=== PATIENT | male | born 1970 | race Caucasian/White ===

== ENCOUNTER 2017-09-23 09:57 | Day surgery (SDC) | payer MEDICARE, OTHER ==
[~2017-09-23] VITALS: Ht 177.8 cm; Wt 88.5 kg
[2017-09-23 09:56] VITALS: BP 134/96
[~2017-09-23 09:57] MED LIST: BUSP15TA60 PO; CARB200T6 PO; CLON1TAB4 PO; CYCL10TA9 PO; GABA600T2 PO; LEVO75TA6 PO; MORP15TA PO; QUET400T PO
[2017-09-23] MEDS ORDERED: BUP/EPI 0.5% 1:200,000 (SENSORCAINE) 30 ML VIAL ONE (10:00)
[2017-09-23] MEDS ORDERED: ceFAZolin 2 GM IV Premixed 50 ML IV ONE (10:00)
[2017-09-23] MEDS ORDERED: GENTAMICIN 40 MG/ML 2 ML INJ SDV ONE (10:00)
[2017-09-23] MEDS ORDERED: ceFAZolin 2 GM IV Premixed 50 ML ONE (10:06)
[2017-09-23] MEDS ORDERED: fentaNYL INJECTION 250 MCG/5 ML AMP ONE (10:08)
[2017-09-23] MEDS ORDERED: MIDAZOLAM 2 MG/2 ML (VERSED) VIAL ONE (10:08)
[2017-09-23] MEDS: LACTATED RINGERS 1,000 ML IV PRN ×2 (10:12→12:09)
[2017-09-23] MEDS ORDERED: VANCOMYCIN 1000 MG/VIAL ONE (10:19)
[2017-09-23] MEDS ORDERED: DEXAMETHASONE 10 MG/ML (DECADRON) 1 ML VIAL ONE (10:54)
[2017-09-23] MEDS ORDERED: ONDANSETRON 4 MG/2 ML (SDV) Z0FRAN ONE (10:54)
[2017-09-23] MEDS ORDERED: proPOfol 200 MG/20 ML (DIPRIVAN) VIAL IV ONE (10:54)
[2017-09-23] MEDS ORDERED: PROPOFOL INJECTION 50 ML IV ONE (10:54)
[2017-09-23] MEDS ORDERED: ROCURONIUM 10 MG/ML 5 ML SYRINGE IV ONE (10:54)
[2017-09-23] MEDS ORDERED: SEVOFLURANE (ULTANE) 15 ML INHAL SOLN ONE (10:59)
[2017-09-23] MEDS ORDERED: GLYCOPYRROLATE 0.2 MG/ML (ROBINUL) 2 ML VIAL ONE (11:00)
[2017-09-23] MEDS ORDERED: NEOSTIGMINE 1 MG/ML 5 ML SYRINGE ONE (11:00)
--- NOTE | 2017-09-23 11:17 | Progress Note-Post Operative ---
Post-Operative Progess Note Surgeon (s)/[employer]ian Blind [employer]her (s) Surgeon RADHA HUGGINS MD [employer] Blind [employer]her: IZZY Gordillo Pre-Operative Diagnosis lumbago Post-Operative Diagnosis Same Procedure & Operative Findings Date of Procedure 09/23/17 Procedure Performed/Findings Permanent Spinal Cord Stimulator with Laminectomy Anesthesia Type GETA Estimated Blood Loss Estimated blood loss (mL): min Specimens/Packing Specimens Removed None RADHA HUGGINS MD Sep 23, 2017 11:17 am
[2017-09-23] MEDS ORDERED: HYDROmorphone 1 MG/ML (DILAUDID) 1 ML SYRINGE ONE (11:35)
[2017-09-23] MEDS: HYDROmorphone 1 MG/ML (DILAUDID) 1 ML SYRINGE IV PRN ×3 (11:37→11:57)
[2017-09-23] MEDS ORDERED: ONDANSETRON 4 MG/2 ML (SDV) Z0FRAN IVP PRN (11:45)
[2017-09-23] MEDS ORDERED: MEPERIDINE (DEMEROL) INJ 50 MG/ML IVP PRN (11:45)
[2017-09-23] MEDS ORDERED: fentaNYL INJECTION 100 MCG/2 ML AMP IVP PRN (11:45)
[2017-09-23] MEDS ORDERED: RT-ALBUTEROL SULF 2.5 MG/3 ML PRE-MIX VIAL ONE (12:08)
[2017-09-23] MEDS ORDERED: RT-ALBUTEROL SULF 2.5 MG/3 ML PRE-MIX VIAL INH ONE (12:15)
[2017-09-23 12:30] VITALS: BP 130/80
[2017-09-23 13:00] VITALS: BP 147/97
[2017-09-23 13:30] VITALS: BP 142/92
--- NOTE | 2017-09-23 13:53 | Diagnostic Imaging Report ---
INDICATION: Fluoroscopy during spinal surgery. FINDINGS: Fluoroscopy was provided to the OR during spinal cord stimulator placement. 8 seconds of fluoroscopy was utilized. Images demonstrate a paddle stimulator in the midline at approximately the T8-9 level. IMPRESSION: Fluoroscopy during spinal stimulator placement in Surgery. Dictated by: Dictated on workstation # [id number]
[2017-09-23 13:55] VITALS: BP 142/92
--- NOTE | 2017-09-23 15:02 | Anesthesia-General Post-Op ---
General Patient Condition Mental Status/LOC: Same as Preop Cardiovascular: Satisfactory Nausea/Vomiting: Absent Respiratory: Satisfactory Pain: Controlled Complications: Absent Post Op Complications Complications None Follow Up Care/Instructions Patient Instructions None needed. Anesthesia/Patient Condition Patient Condition Patient is doing well, no complaints, stable vital signs, no apparent adverse anesthesia problems. No complications reported per nursing. ALLEN HAQ CRNA Sep 23, 2017 15:02
--- NOTE | 2017-09-24 01:09 | OPERATIVE REPORT ---
DATE OF SERVICE: 09/23/2017 PREOPERATIVE DIAGNOSES: Chronic lumbago and lumbar radiculopathy, chronic opioid use. POSTOPERATIVE DIAGNOSES: Chronic lumbago and lumbar radiculopathy, chronic opioid use. PROCEDURE PERFORMED: Placement of permanent spinal cord stimulator with T10-T11 laminectomy for paddle electrode placement and complex programming of spinal cord stimulator. DATE AND TIME OF SURGERY: Please see anesthesia record. IMPLANTS USED: Prodigy MRI compatible Wagner, Prodigy MRI compatible rechargeable IPG, Wagner [employer] Penta lead. SURGEON: Radha Dobbins MD HR ADMINISTRATOR: BECCA Bocanegra ROLE OF COMMERCIAL CLEANER: Aid in retraction of the procedure, suction of neural elements, and wound closure. ANESTHESIA: General endotracheal. ESTIMATED BLOOD LOSS: Minimal. INTRAVENOUS FLUIDS: Please see anesthesia record. ANTIBIOTICS: Ancef. COMPLICATIONS: None. INDICATIONS FOR PROCEDURE: The patient is a 47-year-old male had spinal cord stem trial with good relief desires permanent placement. DESCRIPTION OF PROCEDURE: The patient was taken to the preoperative holding area and brought back to the operative suite. After adequate induction of general anesthetic, preoperative antibiotics, carefully turned prone on Sabas table, careful padding to all extremities, sterilely prepped and draped posterior thorcolumbar spine. Spinal monitoring was performed throughout the procedure and stable. Incision was made overlying the T10-T11 level confirmed on imaging. Laminotomy was created. Dural separator was utilized. Paddle electrode was placed overlying the 8-9 disk space where he had his best pain relief and checked on fluoroscopy and noted to be satisfactory. He was anchored at the lamina level and then strain relief loops were created and it was anchored at the fascial level. Fascia was closed in layers. It was tunneled to his left hip where he desired to have his battery placed. It was connected to a Prodigy MRI compatible battery and the system was functioning well. Wounds were closed in layers. The patient was transferred to recovery room in stable condition and tolerated the procedure well. Job ID: [id number] DocumentID: [id number] Dictated Date: 09/23/2017 11:16:43 Automotive Sales Professional Date: 09/23/2017 17:17:07 Dictated By: RADHA DOBBINS MD [facility]
== END 2017-09-23 13:55 | disposition home or self-care (01) ==
LOC: SDC 09:57
PROVIDERS: ATTEND Orthopaedic Surgery Orthopaedic Surgery of the Spine
DX: M54.16 Radiculopathy, lumbar region (principal); F11.90 Opioid use, unspecified, uncomplicated; Z11.2 Encounter for screening for other bacterial diseases; J44.9 Chronic obstructive pulmonary disease, unspecified; E03.9 Hypothyroidism, unspecified; F31.9 Bipolar disorder, unspecified; F43.10 Post-traumatic stress disorder, unspecified; F41.9 Anxiety disorder, unspecified; G90.50 Complex regional pain syndrome I, unspecified; G62.9 Polyneuropathy, unspecified; F17.210 Nicotine dependence, cigarettes, uncomplicated; Z79.899 Other long term (current) drug therapy
CPT/HCPCS: 87081